=== PATIENT | female | born 1930 | race African-American/Black ===

== ENCOUNTER 2017-10-04 18:37 | Observation (INO) | payer MEDICARE, MEDICAID ==
[~2017-10-04] VITALS: Ht 170.2 cm; Wt 60.2 kg
[~2017-10-04 18:37] MED LIST: AMLO5TAB2 PO; ASPI1TAB57 PO; LEVO50TA4 PO
[2017-10-04 18:39] VITALS: BP 169/74; PULSE 72; RESP 16; TEMP 98.6; O2SAT 100
[2017-10-04] MEDS ORDERED: SIMV20TA PO (20:47)
--- NOTE | 2017-10-04 20:48 | PD ---
HPI Chief Complaint: General Weakness Time Seen by Provider: 20:40 Travel History International Travel<30 days: No Contact w/Intl Traveler<30days: No Traveled to known affect area: No History of Present Illness HPI The patient is an 86 year old female who presents to the [facility] emergency department with a history of reportedly not feeling well since earlier this morning. The patient reports that she's had intermittent dizziness which she describes as a general feeling of something being wrong. The patient has difficulty quantifying exactly how she feels. She reports that it is like a weakness and lightheaded sensation. She reports having history of getting new eyeglasses and feeling dizzy whenever she wears these glasses as well as not being able to see well out of them. The patient reports that she did discontinue the glasses and went back to her old pair. The patient denies having any nausea or vomiting. She reports that earlier in the afternoon around 3 PM she began to feel dizzy again. She moved her bowels and they were softer than usual. She reports that the bowels are brown in color. She denies having any blood in her stool or black or tarry stools. She reports having chest discomfort when asked about having chest pain. She points to the center of her chest. The patient has difficulty characterizing the pain. She denies having any shortness of breath. She reports that she has had an occasional cough, however she is unsure how long. On review of systems otherwise, she denies having any known recent fevers, neck pain, abdominal pain, vomiting, diarrhea, urinary symptoms, one-sided weakness, slurred speech, facial droop, difficulty with word finding ability, or numbness or tingling to her extremities. She reports having a gassy sensation in her abdomen. COUNT INCLUDES THE [facility] Past Medical History Narrative Medical The patient's past medical history is significant for hypertension, hypothyroid disorder, dyslipidemia, prior history of diabetes mellitus-however she reports that this is improved. Heart Rhythm Problems: No Cancer: No Cardiovascular Problems: Yes (HTN) High Cholesterol: Yes Chest Pain: No Congestive Heart Failure: No Diabetes: Yes Diminished Hearing: No Endocrine: Yes Genitourinary: No Hypertension: Yes Musculoskeletal: No Neurologic: No Psychiatric: No Respiratory: Yes (SOB) Immunizations Current: Yes Thyroid Disease: Yes (HYPO) Past Surgical History Narrative Surgical The patient's past surgical history is significant for a hysterectomy, cataract surgery bilaterally. Eye Surgery: Yes (CATARACT SURGERY) Hysterectomy: Yes Social History Alcohol Use: No Tobacco Use: No Substance Use: No Allergies-Medications (Allergen,Severity, Reaction): Coded Allergies: penicillin G (Unverified Allergy, Mild, 05/03/17) Reported Meds & Prescriptions Reported Meds & Active Scripts Active Amlodipine (Amlodipine Besylate) 5 Mg Tab 5 Mg PO DAILY Levothyroxine (Levothyroxine Sodium) 50 Mcg Tab 50 Mcg PO DAILY Aspirin 81 (Aspirin) 81 Mg Tabdr 81 Mg PO DAILY Reported Simvastatin 20 Mg Tab 20 Mg PO DAILY Review of Systems Except as stated in HPI: all other systems reviewed are Neg General / Constitutional: No: Fever Eyes: No: Visual changes HENT: Positive: Lightheadedness, No: Headaches, Congestion Cardiovascular: Positive: Chest Pain or Discomfort, No: Dyspnea on exertion Respiratory: Positive: Cough, No: Shortness of Breath Gastrointestinal: Positive: Abdominal Pain (gassy sensation), Changes in Bowel Habits, Indigestion, No: Nausea, Vomiting, Diarrhea, Hematemesis, Hematochezia, Loss of Appetite Genitourinary: No: Dysuria Musculoskeletal: No: Pain Skin: No Rash Neurologic: Positive: Dizziness, No: Weakness, Focal Abnormalities, Change in Mentation, Slurred Speech, Sensory Disturbance Psychiatric: No: Depression Endocrine: No: Polydipsia Hematologic/Lymphatic: No: Easy Bruising Physical Exam Narrative General: The patient is a well-developed well-nourished female in no acute distress. Head and Neck exam: Head is normocephalic atraumatic. Eyes: EOMI, pupils are equal round and reactive to light. Nose: Midline septum with pink mucous membranes Mouth: Dentition unremarkable. Moist mucus membranes. Posterior oropharynx is not erythematous. No tonsillar hypertrophy. Uvula midline. Airway patent. Neck: No palpable lymphadenopathy. No nuchal rigidity. No thyromegaly. Cardiovascular: Regular rate and rhythm without murmurs, gallops, or rubs. Lungs: Clear to auscultation bilaterally. No wheezes, rhonchi, or rales. Abdomen: Soft, without tenderness to palpation in all 4 quadrants of the abdomen. No guarding, rebound, or rigidity. Normal bowel sounds are audible. No tenderness on palpation of McBurney's point. Negative Mora's sign. Extremities: No clubbing, cyanosis, or edema. 2+ pulses in all 4 extremities. No calf tenderness on palpation. Back: No spinous process tenderness to palpation. No costovertebral angle tenderness to palpation. Neurologic Exam: Cranial nerves 2-12 were intact on exam. Strength is 5/5 in all 4 extremities. No sensory deficits noted. Skin Exam: No rash noted. Intact skin that is warm and dry. Data Data Last Documented VS Vital Signs Date Time Temp Pulse Resp B/P (MAP) Pulse Ox O2 Delivery O2 Flow Rate FiO2 10/04/17 18:39 98.6 72 16 169/74 (105) 100 Room Air Orders Orders Complete Blood Count With Diff (10/04/17 19:06) Basic Metabolic Panel (Bmp) (10/04/17 19:06) Urinalysis - C+S If Indicated (10/04/17 19:06) Electrocardiogram (10/04/17 ) Creatine Kinase (Cpk) (10/04/17 20:40) Ckmb (Isoenzyme) Profile (10/04/17 20:40) Troponin I (10/04/17 20:40) B-Type Natriuretic Peptide (10/04/17 20:40) Hepatic Functional Panel (10/04/17 20:40) Thyroid Stimulating Hormone (10/04/17 20:40) Chest, Single Ap (10/04/17 20:40) Ct Brain W/O Iv Contrast(Rout) (10/04/17 20:40) Orthostatic Vital Signs (10/04/17 20:48) CKMB (10/04/17 20:30) CKMB% (10/04/17 20:30) Labs Laboratory Tests Test 10/04/17 20:30 10/04/17 22:30 10/04/17 23:05 Blood Urea Nitrogen 5 MG/DL Creatinine 0.98 MG/DL Random Glucose 99 MG/DL Calcium Level 9.6 MG/DL Sodium Level 139 MEQ/L Potassium Level 3.6 MEQ/L Chloride Level 106 MEQ/L Carbon Dioxide Level 24.3 MEQ/L Anion Gap 9 MEQ/L Estimat Glomerular Filtration Rate 65 ML/MIN Total Bilirubin 0.4 MG/DL Direct Bilirubin 0.1 MG/DL Indirect Bilirubin 0.3 MG/DL Aspartate Amino Transf (AST/SGOT) 33 U/L Alanine Aminotransferase (ALT/SGPT) 19 U/L Alkaline Phosphatase 64 U/L Total Creatine Kinase 259 U/L Creatine Kinase MB 2.4 NG/ML Creatine Kinase MB % 0.9 % Troponin I LESS THAN 0.02 NG/ML B-Type Natriuretic Peptide 31 PG/ML Total Protein 8.5 GM/DL Albumin 3.6 GM/DL Thyroid Stimulating Hormone 3rd Gen 1.370 uIU/ML White Blood Count 9.6 TH/MM3 Red Blood Count 4.05 MIL/MM3 Hemoglobin 12.1 GM/DL Hematocrit 36.9 % Mean Corpuscular Volume 91.0 FL Mean Corpuscular Hemoglobin 29.9 PG Mean Corpuscular Hemoglobin Concent 32.9 % Red Cell Distribution Width 14.5 % Platelet Count 189 TH/MM3 Mean Platelet Volume 9.1 FL Neutrophils (%) (Auto) 53.2 % Lymphocytes (%) (Auto) 30.0 % Monocytes (%) (Auto) 5.2 % Eosinophils (%) (Auto) 10.3 % Basophils (%) (Auto) 1.3 % Neutrophils # (Auto) 5.1 TH/MM3 Lymphocytes # (Auto) 2.9 TH/MM3 Monocytes # (Auto) 0.5 TH/MM3 Eosinophils # (Auto) 1.0 TH/MM3 Basophils # (Auto) 0.1 TH/MM3 CBC Comment DIFF FINAL Differential Comment Urine Color LIGHT-YELLOW Urine Turbidity CLEAR Urine pH 7.0 Urine Specific [place] 1.002 Urine Protein NEG mg/dL Urine Glucose (UA) NEG mg/dL Urine Ketones NEG mg/dL Urine Occult Blood NEG Urine Nitrite NEG Urine Bilirubin NEG Urine Urobilinogen LESS THAN 2.0 MG/DL Urine Leukocyte Esterase MOD Urine RBC LESS THAN 1 /hpf Urine WBC 6 /hpf Urine Squamous Epithelial Cells <1 /hpf Urine Transitional Epithelial Cells <1 /hpf Microscopic Urinalysis Comment CULT NOT INDICATED MDM Medical Decision Making Medical Screen Exam Complete: Yes Emergency Medical Condition: Yes Medical Record Reviewed: Yes Interpretation(s) Last Impressions Head CT 10/04/172039 Signed Impressions: Service Date/Time: Wednesday, October 04, 2017 21:20 - CONCLUSION: Normal examination for a patient of this age. Helio Diaz MD Chest X-Ray 10/04/172039 Signed Impressions: Service Date/Time: Wednesday, October 04, 2017 21:01 - CONCLUSION: No acute disease. No significant change has occurred. Helio Diaz MD Differential Diagnosis Stasis, versus dehydration, versus electrolyte derangements, versus intracranial abnormality, versus metabolic encephalopathy Narrative Course During the course of the patients emergency department visit, the patients history, examination, and differential diagnosis were reviewed with the patient. The patient was placed on a environmental monitoring technician with oximetry and frequent blood pressure monitoring. The patient had IV access obtained and blood work sent for analysis. An EKG was done on arrival that shows a sinus rhythm with a first-degree AV block, no acute ST segment elevation. T waves are inverted in V1. QRS duration is 94 ms, QTC 431 ms. The patients laboratory studies were reviewed and remarkable for a white count of 9.6, hemoglobin 12.1, platelets 189 with 10.3 eosinophils, CMP is remarkable for a BUN of 5, GFR 65, CPK 259 with an MB percent is 0.9, troponin I less than 0.02, BNP 31, TSH 1.37, urinalysis shows moderate leukocyte esterase, 6 WBCs. Radiology studies were reviewed and remarkable for a chest x-ray that shows no acute cardiopulmonary disease. CT scan of the brain shows no acute abnormality. The patient was given aspirin 243 mg by mouth 1, nitroglycerin 1 inch of paste the chest wall. The patient will be admitted to the chest pain center for rule out serial cardiac enzyme protocol followed by consideration of stress testing. The patients results were discussed with the patient, including the plan of care. I explained that further testing and/ or monitoring is indicated based on the patients history, examination, and/ or laboratory findings. Therefore, I recommended admission for additional evaluation. The patient expressed understanding and was agreeable with this plan. The patient was admitted to the hospital in stable condition and sent to a bed under the care of the chest pain center. Diagnosis Primary Impression: Chest pain, rule out acute myocardial infarction Additional Impression: Light-headed feeling Priyanka Mcdonald MD Oct 04, 2017 20:48
[2017-10-04 21:00] VITALS: BP 140/72; RESP 16
--- NOTE | 2017-10-04 21:30 | RADRPT ---
EXAM DATE/TIME: 10/04/2017 21:01 [facility] COMPARISON: CHEST SINGLE AP, August 15, 2015, 20:21. INDICATIONS : Cough, syncope, nausea. MEDICAL HISTORY : Hypertension. Diabetes mellitus type II. SURGICAL HISTORY : Hysterectomy. ENCOUNTER: Initial ACUITY: 2 days PAIN SCORE: 0/10 LOCATION: Bilateral chest FINDINGS: A single view of the chest demonstrates the lungs to be symmetrically aerated without evidence of mas s, infiltrate or effusion. Hyperaeration bilaterally. The cardiomediastinal contours are unremarkable . Osseous structures are intact. CONCLUSION: No acute disease. No significant change has occurred. Helio Diaz MD on October 04, 2017 at 21:27 Board Certified Radiologist. This report was verified electronically.
[2017-10-04 21:34] LABS: ALBUMIN 3.6 GM/DL (3.4-5.0); ALT (GPT) 19 U/L (10-53); AST (GOT) 33 U/L (15-37); DIRECT BILIRUBIN ADULT 0.1 MG/DL (0.0-0.2)
[2017-10-04 21:44] LABS: ALKALINE PHOSPHATASE 64 U/L (45-117); INDIRECT BILIRUBIN 0.3 MG/DL (0.0-0.8); TOTAL BILIRUBIN ADULT 0.4 MG/DL (0.2-1.0); TOTAL PROTEIN 8.5 GM/DL (6.4-8.2); TROPONIN I LESS THAN 0.02 NG/ML (0.02-0.05)
--- NOTE | 2017-10-04 21:46 | RADRPT ---
EXAM DATE/TIME: 10/04/2017 21:20 [facility] COMPARISON: No previous studies available for comparison. INDICATIONS : ?Patient complains of dizziness. RADIATION DOSE: 36.33 CTDIvol (mGy) MEDICAL HISTORY : Hypertension. Cardiovascular disease SURGICAL HISTORY : Hysterectomy. ENCOUNTER: Initial ACUITY: 1 day PAIN SCALE: 0/10 LOCATION: cranial TECHNIQUE: Multiple contiguous axial images were obtained of the head. Using automated exposure control and adj ustment of the mA and/or kV according to patient size, radiation dose was kept as low as reasonably a chievable to obtain optimal diagnostic quality images. DICOM format image data is available electro nically for review and comparison. FINDINGS: CEREBRUM: The ventricles are normal for age. No evidence of midline shift, mass lesion, hemorrhage or acute in farction. No extra-axial fluid collections are seen. POSTERIOR FOSSA: The cerebellum and brainstem are intact. The 4th ventricle is midline. The cerebellopontine angle i s unremarkable. EXTRACRANIAL: The visualized portion of the orbits is intact. Mild chronic left maxillary sinus disease. SKULL: The calvaria is intact. No evidence of skull fracture. CONCLUSION: Normal examination for a patient of this age. Helio Diaz MD on October 04, 2017 at 21:43 Board Certified Radiologist. This report was verified electronically.
[2017-10-04 22:00] VITALS: BP 137/71; PULSE 62; RESP 16; O2SAT 100
[2017-10-04 22:22] LABS: BICARBONATE 24.3 MEQ/L (21.0-32.0); CALCIUM 9.6 MG/DL (8.5-10.1); CREATININE 0.98 MG/DL (0.50-1.00)
[2017-10-04 22:53] LABS: AUTOMATED NEUTROPHIL # 5.1 TH/MM3 (1.8-7.7); BASOPHIL # 0.1 TH/MM3 (0-0.2); BASOPHIL % 1.3 % (0.0-2.0); EOSINOPHIL % 10.3 % (0.0-4.0); HEMATOCRIT 36.9 % (35.0-46.0); HEMOGLOBIN 12.1 GM/DL (11.6-15.3); LYMPHOCYTE # 2.9 TH/MM3 (1.0-4.8); MEAN CORPUSCULAR HEMOGLOBIN 29.9 PG (27.0-34.0); MEAN CORPUSCULAR HGB CONC 32.9 % (32.0-36.0); MEAN PLATELET VOLUME 9.1 FL (7.0-11.0); MONO % 5.2 % (0.0-8.0); MONOCYTE # 0.5 TH/MM3 (0-0.9); NEUT % 53.2 % (16.0-70.0); PLATELET COUNT 189 TH/MM3 (150-450); RED BLOOD COUNT 4.05 MIL/MM3 (4.00-5.30); RED CELL DISTRIBUTION WIDTH 14.5 % (11.6-17.2); WHITE BLOOD COUNT 9.6 TH/MM3 (4.0-11.0)
[2017-10-04 23:29] LABS: BILIRUBIN, URINE NEG (NEG); BLOOD, URINE NEG (NEG); GLUCOSE,URINE NEG (NEG); KETONE, URINE NEG (NEG); NITRITE,URINE NEG (NEG); SQUAMOUS EPITHELIAL CELL URINE <1 /hpf (0-5); TRANSITIONAL EPI CELLS, URINE <1 /hpf; URINE COLOR LIGHT-YELLOW (YELLW/STRAW); URINE LEUKOCYTE ESTERASE MOD (NEG)
[2017-10-05] VITALS (8 sets, daily range): BP systolic 116–154; BP diastolic 57–69; PULSE 62–69; RESP 16–19; TEMP 98–98.5; O2SAT 97–100
[2017-10-05] MEDS ORDERED: NITROGLYCERIN 2% OINT 1 GM PACKET TOPICAL ONE
[2017-10-05] MEDS ORDERED: ASPIRIN 81 MG CHEW TAB CHEW ONE
[2017-10-05] MEDS ORDERED: ACETAMINOPHEN 500 MG CPLT PO PRN (00:30)
[2017-10-05] MEDS ORDERED: SODIUM CHLORIDE 0.9% FLUSH 10 ML FLUSH IV FLUSH PRN (00:30)
[2017-10-05 01:57] LABS: TROPONIN I LESS THAN 0.02 NG/ML (0.02-0.05)
[2017-10-05 04:32] LABS: TROPONIN I LESS THAN 0.02 NG/ML (0.02-0.05)
[2017-10-05] MEDS ORDERED: SODIUM CHLORIDE 0.9% FLUSH 10 ML FLUSH IV FLUSH SCH (09:00)
[2017-10-05] MEDS ORDERED: LEVOTHYROXINE SODIUM 50 MCG TAB PO SCH (09:15)
[2017-10-05] MEDS ORDERED: amLODIPine BESYLATE 5 MG TAB PO SCH (09:15)
--- NOTE | 2017-10-05 09:24 | HHI.HP ---
HPI Primary Care Physician Unknown Chief Complaint Chest pain History of Present Illness This is a 86-year-old female with history of hypertension, hyperlipidemia, diabetes, and hypothyroidism that presents to ED with primary complaint of having left-sided chest discomfort that began yesterday afternoon. It lasted about 10 minutes. Denies shortness of breath, nausea, or diaphoresis with the symptoms. Has a hard time describing the characteristic of the discomfort. Found nothing to worsen or improve when she had it. She also states the day before she felt weak. She stated was a generalized weakness. States she usually walks with a cane as she has had problems with this in the past. Denies falling. Denies headache. Denies numbness tingling in extremities. She had apparently was discussing her vision with the ED physician. Upon further questioning. Patient states she cannot see well out of her new glasses but sees fine out of her old ones. Review of Systems General: Patient denies fevers, chills recent, and recent travel HEENT: Patient denies headache, sore throat, difficulty swallowing. Cardiovascular: Has the chest discomfort as mentioned above. Denies sensation of heart beating rapidly or irregularly. No syncope. Denies diaphoresis. Respiratory: Denies shortness of breath or inspirational chest discomfort. Denies coughing wheezing or hemoptysis. GI: Patient denies nausea, vomiting, diarrhea, abdominal pain, bloody stools. Musculoskeletal: Patient denies joint pain or edema. Denies calf pain or edema. Neurovascular: Patient denies numbness, tingling, unilateral weakness in extremities. Complained of having generalized weakness 2 days ago. Denies headache. Endocrine: Denies polyuria and polydipsia. Hematologic: Denies easy bruising. Skin: Denies rash or itching. Past Family Social History Allergies: Coded Allergies: penicillin G (Unverified Allergy, Mild, 05/03/17) Past Medical History Hypertension, hyperlipidemia, hypothyroidism. States she has history of diabetes but her PCP took her off medication and she has been diet controlled. Denies known CAD. Past Surgical History Hysterectomy. Cataracts. Reported Medications Reported Meds & Active Scripts Active Amlodipine (Amlodipine Besylate) 5 Mg Tab 5 Mg PO DAILY Levothyroxine (Levothyroxine Sodium) 50 Mcg Tab 50 Mcg PO DAILY Aspirin 81 (Aspirin) 81 Mg Tabdr 81 Mg PO DAILY Reported Simvastatin 20 Mg Tab 20 Mg PO DAILY Active Ordered Medications Current Medications Medications (Trade) Dose Ordered Sig/Alexandra Route Start Time Stop Time Status Last Admin (NS Flush) 2 ml UNSCH PRN IV FLUSH 10/05/17 00:30 (NS Flush) 2 ml BID IV FLUSH 10/05/17 09:00 (Tylenol) 500 mg Q4H PRN PO 10/05/17 00:30 (Norvasc) 5 mg DAILY PO 10/05/17 09:15 (Synthroid) 50 mcg DAILY@0600 PO 10/05/17 09:15 Non-Formulary Medication 20 mg DAILY PO 10/05/17 09:15 UNV Family History Her sister recently passed with valvular heart disease. Social History Lifetime non-smoker. Denies alcohol or illicit drugs. 2 of her nieces live with her. Physical Exam Vital Signs Vital Signs Date Time Temp Pulse Resp B/P (MAP) Pulse Ox O2 Delivery O2 Flow Rate FiO2 10/05/17 09:02 100 21 10/05/17 07:25 98.0 65 18 136/69 (91) 100 131/61 (84) 127/64 (85) 10/05/17 04:10 98.4 65 18 120/65 (83) 98 10/05/17 02:26 98.5 66 19 154/65 (94) 99 10/05/17 01:00 56 16 147/67 (93) 99 10/05/17 00:00 62 16 145/67 (93) 100 Room Air 10/04/17 22:00 62 16 137/71 (93) 100 Room Air 10/04/17 21:00 68 16 140/72 (94) 10/04/17 18:39 98.6 72 16 169/74 (105) 100 Room Air Physical Exam GENERAL: This is a well-nourished, well-developed patient, in no apparent distress. Patient speaks in clear complete sentences. Patient is pleasant. HEENT: Head is atraumatic and normocephalic. Neck is supple without lymphadenopathy and trachea is midline. No JVD or carotid bruits. CARDIOVASCULAR: Regular rate and rhythm without murmurs, gallops, or rubs. RESPIRATORY: Clear to auscultation. Breath sounds equal bilaterally. No wheezes , rales, or rhonchi. Chest wall is nontender. No use of accessory muscles. GASTROINTESTINAL: Abdomen is nontender, nondistended. Abdomen soft. No obvious pulsatile mass or bruit. No CVA tenderness. Strong femoral pulses bilaterally. Normal bowel sounds in all quadrants. MUSCULOSKELETAL: Patient is moving upper and lower extremities freely. No calf tenderness or edema, no Homans sign. Strong pulses in upper and lower extremities. NEUROLOGICAL: Patient is alert and oriented. Cranial nerves 2-12 are grossly intact. No focal deficits and speech is clear. SKIN: No rash and turgor is normal. Laboratory Laboratory Tests Test 10/04/17 20:30 10/04/17 22:30 10/04/17 23:05 10/05/17 00:45 Blood Urea Nitrogen 5 Creatinine 0.98 Random Glucose 99 Calcium Level 9.6 Sodium Level 139 Potassium Level 3.6 Chloride Level 106 Carbon Dioxide Level 24.3 Anion Gap 9 Estimat Glomerular Filtration Rate 65 Total Bilirubin 0.4 Direct Bilirubin 0.1 Indirect Bilirubin 0.3 Aspartate Amino Transf (AST/SGOT) 33 Alanine Aminotransferase (ALT/SGPT) 19 Alkaline Phosphatase 64 Total Creatine Kinase 259 202 Creatine Kinase MB 2.4 2.2 Creatine Kinase MB % 0.9 1.1 Troponin I LESS THAN 0.02 LESS THAN 0.02 B-Type Natriuretic Peptide 31 Total Protein 8.5 Albumin 3.6 Thyroid Stimulating Hormone 3rd Gen 1.370 White Blood Count 9.6 Red Blood Count 4.05 Hemoglobin 12.1 Hematocrit 36.9 Mean Corpuscular Volume 91.0 Mean Corpuscular Hemoglobin 29.9 Mean Corpuscular Hemoglobin Concent 32.9 Red Cell Distribution Width 14.5 Platelet Count 189 Mean Platelet Volume 9.1 Neutrophils (%) (Auto) 53.2 Lymphocytes (%) (Auto) 30.0 Monocytes (%) (Auto) 5.2 Eosinophils (%) (Auto) 10.3 Basophils (%) (Auto) 1.3 Neutrophils # (Auto) 5.1 Lymphocytes # (Auto) 2.9 Monocytes # (Auto) 0.5 Eosinophils # (Auto) 1.0 Basophils # (Auto) 0.1 CBC Comment DIFF FINAL Differential Comment Urine Color LIGHT-YELLOW Urine Turbidity CLEAR Urine pH 7.0 Urine Specific [place] 1.002 Urine Protein NEG Urine Glucose (UA) NEG Urine Ketones NEG Urine Occult Blood NEG Urine Nitrite NEG Urine Bilirubin NEG Urine Urobilinogen LESS THAN 2.0 Urine Leukocyte Esterase MOD Urine RBC LESS THAN 1 Urine WBC 6 Urine Squamous Epithelial Cells <1 Urine Transitional Epithelial Cells <1 Microscopic Urinalysis Comment CULT NOT INDICATED Test 10/05/17 03:48 Total Creatine Kinase 194 Creatine Kinase MB 1.8 Creatine Kinase MB % 0.9 Troponin I LESS THAN 0.02 Result Diagram: 10/04/17222910/04/172029 Imaging Last [address] 10/04/172039 Signed Impressions: Service Date/Time: Wednesday, October 04, 2017 21:20 - CONCLUSION: Normal examination for a patient of this age. Helio Diaz MD Chest X-Ray 10/04/172039 Signed Impressions: Service Date/Time: Wednesday, October 04, 2017 21:01 - CONCLUSION: No acute disease. No significant change has occurred. Helio Diaz MD Course EKGS ARE SR TO SB WITH NO SIGNIFICANT ST CHANGES. 1ST DEGREE AV BLOCK. Caprini VTE Risk Assessment Caprini VTE Risk Assessment: Mod/High Risk (score >= 2) Caprini Risk Assessment Model Point Value = 1 Point Value = 2 Point Value = 3 Point Value = 5 Age 41-60 Minor surgery BMI > 25 kg/m2 Swollen legs Varicose veins or History of unexplained or recurrent spontaneous Oral contraceptives or hormone replacement Sepsis (< 1 month) Serious lung disease, including pneumonia (< 1 month) Abnormal pulmonary function Acute myocardial infarction Congestive heart failure (< 1 month) History of inflammatory bowel disease Medical patient at bed rest Age 61-74 Arthroscopic surgery Major open surgery (> 45 min) Laparoscopic surgery (> 45 min) Malignancy Confined to bed (> 72 hours) Immobilizing plaster cast Central venous access Age >= 75 History of VTE Family history of VTE Factor V Leiden Prothrombin [id number] Lupus anticoagulant Anticardiolipin antibodies Elevated serum homocysteine Heparin-induced thrombocytopenia Other congenital or acquired thrombophilia Stroke (< 1 month) Elective arthroplasty Hip, pelvis, or leg fracture Acute spinal cord injury (< 1 month) Prophylaxis Regimen Total Risk Factor Score Risk Level Prophylaxis Regimen 0-1 Low Early ambulation 2 Moderate Order ONE of the following: *Sequential Compression Device (SCD) *Heparin 5000 units SQ BID 3-4 Higher Order ONE of the following medications: *Heparin 5000 units SQ TID *Enoxaparin/Lovenox 40 mg SQ daily (WT < 150 kg, CrCl > 30 mL/min) *Enoxaparin/Lovenox 30 mg SQ daily (WT < 150 kg, CrCl > 10-29 mL/min) *Enoxaparin/Lovenox 30 mg SQ BID (WT < 150 kg, CrCl > 30 mL/min) AND/OR *Sequential Compression Device (SCD) 5 or more Highest Order ONE of the following medications: *Heparin 5000 units SQ TID (Preferred with Epidurals) *Enoxaparin/Lovenox 40 mg SQ daily (WT < 150 kg, CrCl > 30 mL/min) *Enoxaparin/Lovenox 30 mg SQ daily (WT < 150 kg, CrCl > 10-29 mL/min) *Enoxaparin/Lovenox 30 mg SQ BID (WT < 150 kg, CrCl > 30 mL/min) AND *Sequential Compression Device (SCD) Assessment and Plan Assessment and Plan * CHEST PAIN: Patient has had serial cardiac enzymes and EKGs for ruling out purposes. She will be seen by Dr. Micky Reed of cardiology in the chest pain center. Patient will have a Lexiscan. Patient to be discharged home if Lexiscan is nonischemic with instructions to follow-up with PCP. Return to ED for interval issues. * Hypertension: Continue current medication. * Hyperlipidemia: Continue medication. * Hypothyroidism: Continue current medication. * Diabetes: Patient states she is diet controlled at this time. She should follow diabetic diet. She will have sliding scale insulin coverage while in the chest pain center. Patient is stable at this time. She is agreeable to this plan. Roby Curry Oct 05, 2017 09:24
[2017-10-05] MEDS ORDERED: RESP: ALBUTEROL 2.5 MG/IPRATROPIUM 0.5 MG NEB (SCH) INH ONE (10:15)
[2017-10-05] MEDS ORDERED: PRAVASTATIN SOD 40 MG TAB PO SCH (10:15)
[2017-10-05] MEDS ORDERED: ASPIRIN 325 MG TAB ONE (10:47)
[2017-10-05] MEDS ORDERED: RESP: ALBUTEROL 2.5 MG/IPRATROPIUM 0.5 MG NEB (PRN) INH (12:00)
[2017-10-05] MEDS ORDERED: REGADENOSON INJ 0.4 MG/5 ML SYR ONE (13:55)
--- NOTE | 2017-10-05 14:27 | EKG ---
Date Performed: 10/05/2017 Time Performed: 03:40:29 PTAGE: 86 years EKG: Sinus rhythm WITH SINUS ARRHYTHMIA WITH FIRST DEGREE AV BLOCK ABNORMAL ECG PREVIOUS TRACING : 10/05/2017 01.08 Since previous tracing, no significant change noted DOCTOR: Micky Reed Interpretating Date/Time 10/05/2017 14:26:21
--- NOTE | 2017-10-05 14:28 | EKG ---
Date Performed: 10/05/2017 Time Performed: 01:08:37 PTAGE: 86 years EKG: SINUS BRADYCARDIA WITH SINUS ARRHYTHMIA WITH FIRST DEGREE AV BLOCK ABNORMAL ECG PREVIOUS TRACING : 10/04/2017 20.35 Since previous tracing, no significant change noted DOCTOR: Micky Reed Interpretating Date/Time 10/05/2017 14:26:52
--- NOTE | 2017-10-05 14:29 | EKG ---
Date Performed: 10/04/2017 Time Performed: 20:35:14 PTAGE: 86 years EKG: Sinus rhythm WITH FIRST DEGREE AV BLOCK ABNORMAL ECG PREVIOUS TRACING : 08/15/2015 20.23 Since previous tracing, no significant change noted DOCTOR: Micky Reed Interpretating Date/Time 10/05/2017 14:27:56
--- NOTE | 2017-10-05 14:33 | TR ---
Date Performed: 10/05/2017 Time Performed: 13:55:19 DOCTOR: Micky Reed DRUG LIST: CLINICAL HISTORY: ANGINA REASON FOR TEST: Angina REASON FOR ENDING: OBSERVATION: CONCLUSION: Lexiscan stress test was performed under standard four minute protocol. Radionuclid e was injected one minute prior to ending the test. No electrocardiographic abormalities were present to suggest ischemia. Nuclear imaging and interpretation are pending. COMMENTS:
--- NOTE | 2017-10-05 15:13 | RADRPT ---
EXAM DATE/TIME: 10/05/2017 13:38 [place] COMPARISON: No previous studies available for comparison. INDICATIONS : Susbternal chest pain with weakness. Angina. DOSE: 25.2 mCi Tc99m Myoview at stress. 8.7 mCi Tc99m Myoview at rest. 0.4 mg Lexiscan STRESS SYMPTOMS: Dizzy and short of breath. EJECTION FRACTION: > 70% MEDICAL HISTORY : Hypertension. Diabetes mellitus type 2. SURGICAL HISTORY : Hysterectomy. ENCOUNTER: Initial ACUITY: 1 day PAIN SCALE: 5/10 LOCATION: Substernal chest TECHNIQUE: The patient underwent pharmacologic stress with infusion of prescribed dose. Continuous ECG tracing was monitored during stress. Gated SPECT imaging was performed after stress and conventional SPECT i maging was performed at rest. The examination was performed on a SPECT/CT scanner, both attenuation and non-corrected datasets were reviewed. FINDINGS: DISTRIBUTION: The maximum perfused segment at stress is in the anterolateral wall. PERFUSION STUDY: The pattern of perfusion at stress is within normal limits. GATED STUDY: There is intact wall motion and thickening without hypokinetic or dyskinetic segments. CONCLUSION: 1. Unremarkable myocardial perfusion scan. RISK CATEGORY: Low (<1% Annual Mortality Rate) Micky Benjamin MD on October 05, 2017 at 15:09 Board Certified Radiologist. This report was verified electronically.
--- NOTE | 2017-10-05 15:36 | HHI.DCPOC ---
Discharge Care Plan Diagnosis: (1) Chest pain (2) Hypertension (3) Hyperlipidemia (4) DM (diabetes mellitus) Goals to Promote Your Health * To prevent worsening of your condition and complications * To maintain your health at the optimal level Directions to Meet Your Goals Take your medications as prescribed Follow your dietary instruction Follow activity as directed Keep your appointments as scheduled Take your immunizations and boosters as scheduled If your symptoms worsen call your PCP, if no PCP go to Urgent Care Center or Emergency Room Smoking is Dangerous to Your Health. Avoid second hand smoke Call the 24-hour hour crisis hotline for domestic abuse at Roby Curry Oct 05, 2017 15:36
[2017-10-06] MEDS ORDERED: ASPIRIN 325 MG TAB PO SCH (09:00)
== END 2017-10-05 17:42 | disposition home or self-care (01) ==
LOC: NEPE 18:37 → NEDA 10-05 → NEDH 10-05 04:20 → NEPFCDU 10-05 13:33
PROVIDERS: ADMIT Internal Medicine Interventional Cardiology; ATTEND Internal Medicine Interventional Cardiology
DX: R07.89 Other chest pain (principal); I10 Essential (primary) hypertension; E78.5 Hyperlipidemia, unspecified; E03.9 Hypothyroidism, unspecified; E11.9 Type 2 diabetes mellitus without complications; R53.1 Weakness; R42 Dizziness and giddiness; R05 Cough; R11.0 Nausea; E78.00 Pure hypercholesterolemia, unspecified; R06.02 Shortness of breath; R94.31 Abnormal electrocardiogram [ECG] [EKG]; R55 Syncope and collapse
CPT/HCPCS: 70450; 71045; 78452; 80048; 80076; 81001; 82550; 82552; 83880; 84443; 84484; 85025; 93005; 93017; 94664; 99285; A9502; G0378; J2785